=== PATIENT | female | born 2005 | race Caucasian/White ===

== ENCOUNTER 2025-01-17 13:00 | Outpatient (RCR) | payer OTHER, SELFPAY ==
--- NOTE | 2024-10-30 14:21 | OPREHPOC ---
Outpatient Therapy Plan of Care This is a Multidisciplinary Plan of Care that may contain components documented by all disciplines (PT, OT, and ST.) PT Problem 1 PT Problem #1 Knowledge Deficit PT Goal 1 Goal / Goal Update 1*independent with HEP 2* pt demonstrate correct body mechanics with lifting from floor Target Visit 6 PT Problem 2 PT Problem #2 Pain PT Goal 1 Goal / Goal Update *pt report pain rating at worst of 3/10 Target Visit 6 PT Problem 3 PT Problem #3 Impaired Strength PT Goal 1 Goal / Goal Update 1* increase strength of trunk and hips to 4+/5, to improve stability to spine and posture single leg standing with good stability x 30 seconds 2* R 3* L Target Visit 6
--- NOTE | 2024-10-30 14:21 | PTOPEVAL1 ---
Assessment and note entered by Graciela Robles, PT Evaluation Information Assessment Status Evaluation ICD-10 Condition Codes (PT) Pain in Thoracic Spine M54.6,Pain in low back M54. 50 Onset about 8 months ago Subjective Information chronic back pain since high school; have never had treatment for back pain; x ray- per pt mild scoliosis activity: assisting with care for her mother, who has cancer; she does not have to physically assist her mom; Goal: be able to lie down and not have sharp pain in my back Reported Pain Level Pain Score Self Report Additional Pain Score Comments pain range in the past week: 0-6/10 back increase pain: up and moving around few hours, then lie down in bed- get sharp pain decrease pain: shift onto her side sit, stand, sleeping and walking are OK does not take any pain meds Assessment PT Clinical Summary Nevaeh has the diagnosis of thoracic and lumbar pain. She reports issues with chronic back pain, recently more. And she has not had treatment in the past for back pain. Self assessment rating of 24% limitation in activity level. She is independent with her self care and home tasks. With the evaluation: she has scoliosis of thoracic-lumbar spine, with poor trunk positioning in standing; weakness of trunk and hips, with good flexibility of hips and decreased lumbar mobility; Skilled PT services are indicated for modalities PRN for pain control, therapeutic exercises to increase strength and education for HEP and body mechanics/posture education. Plan of Care Interventions Electrical Stimulation,Hot Pack/Cold Pack,Manual Therapy,Neuro Re-education,Patient/Caregiver Education,Therapeutic Activities,Therapeutic Exercise,Ultrasound,Other Other Interventions taping PT Services Indicated Yes Treatment Frequency and 1-2x/wk for 6 visits Duration These treatments will address the objective and functional deficits as defined above. The patient will be advanced safely and appropriately in order for the patient to progress towards his/her prior level of function. Additional exercises will be introduced and as well as a comprehensive home exercise program upon discharge, if needed, ?to ensure carryover of functional gains achieved in the clinic. This treatment plan has been reviewed and agreement upon by the patient.
--- NOTE | 2024-12-12 13:56 | OPREHPOC ---
Outpatient Therapy Plan of Care This is a Multidisciplinary Plan of Care that may contain components documented by all disciplines (PT, OT, and ST.) PT Problem 1 PT Problem #1 Knowledge Deficit PT Goal 1 Goal / Goal Update 1*independent with HEP 12/12/24 - MET 2* pt demonstrate correct body mechanics with lifting from floor 12/12/24 - progressing Target Visit 6 Progress Partially Met PT Problem 2 PT Problem #2 Pain PT Goal 1 Goal / Goal Update *pt report pain rating at worst of 3/10 12/12/24 - progressing Target Visit 6 Progress Partially Met PT Problem 3 PT Problem #3 Impaired Strength PT Goal 1 Goal / Goal Update 1* increase strength of trunk and hips to 4+/5, to improve stability to spine and posture 12/12/24 - progressing single leg standing with good stability x 30 seconds 2* R 12/12/24 - MET 3* L 12/12/24 - MET Target Visit 6 Progress Partially Met
--- NOTE | 2024-12-12 13:56 | PTOPPROG ---
Assessment and note entered by Ada Bolton, PT Evaluation Information Assessment Status Progress ICD-10 Condition Codes (PT) Pain in Thoracic Spine M54.6,Pain in low back M54. 50 Onset about 8 months ago Subjective Information Pt reports feeling pretty good overall since first starting therapy. The pt reports overall feelings of improvement by 70%. She thinks the sharp pain when laying down has gotten better, does not notice it as often. She does still notice tension in her back especially with cleaning the house. Assessment PT Clinical Summary Self assessment rating of 16% limitation in activity level with reports of 70% improvement in most subjective complaints. Pt continues to have poor trunk positioning in standing; weakness of trunk and hips, and decreased lumbar mobility; although she is improving in all these areas. Pt deficits will continue to be addressed and she would benefit from continued skilled PT. Plan of Care Interventions Electrical Stimulation,Hot Pack/Cold Pack,Manual Therapy,Neuro Re-education,Patient/Caregiver Education,Therapeutic Activities,Therapeutic Exercise,Ultrasound,Other Other Interventions taping PT Services Indicated Yes Treatment Frequency and 1-2x/wk for 6 visits Duration These treatments will address the objective and functional deficits as defined above. The patient will be advanced safely and appropriately in order for the patient to progress towards his/her prior level of function. Additional exercises will be introduced and as well as a comprehensive home exercise program upon discharge, if needed, ?to ensure carryover of functional gains achieved in the clinic. This treatment plan has been reviewed and agreement upon by the patient.
--- NOTE | 2025-01-07 15:54 | PCPTNOTE ---
Cancelled d/t transportation issues per front office. AKS
--- NOTE | 2025-01-11 13:57 | PCPTNOTE ---
Patient called & cancelled scheduled appointment this date due to transportation and mother being sick.
--- NOTE | 2025-01-17 13:56 | OPREHPOC ---
Outpatient Therapy Plan of Care This is a Multidisciplinary Plan of Care that may contain components documented by all disciplines (PT, OT, and ST.) PT Problem 1 PT Problem #1 Knowledge Deficit PT Goal 1 Goal / Goal Update 1*independent with HEP 12/12/24 - MET 2* pt demonstrate correct body mechanics with lifting from floor 12/12/24 - progressing 01-17-25 d/c goals met Target Visit 10 Progress Met PT Problem 2 PT Problem #2 Pain PT Goal 1 Goal / Goal Update *pt report pain rating at worst of 3/12/12/24 - progressing 01-17-25 d/c goal not met, 5/10 at worst Target Visit 12 Progress Not Met PT Problem 3 PT Problem #3 Impaired Strength PT Goal 1 Goal / Goal Update 1* increase strength of trunk and hips to 4+/5, to improve stability to spine and posture 12/12/24 - progressing single leg standing with good stability x 30 seconds 2* R 12/12/24 - MET 3* L 12/12/24 - MET 01-17-25 d/c goals met Target Visit 10 Progress Met
--- NOTE | 2025-01-17 13:56 | PTOPDC ---
Assessment and note entered by Graciela Robles, PT Assessment Status Discharge ICD-10 Condition Codes (PT) Pain in Thoracic Spine M54.6,Pain in low back M54. 50 Onset about 8 months ago Subjective Information have been doing the exercises at home; still have really bad pain; have been helping my mom more and caring for her more; have been trying to watch my posture with things and stretch more and that helps; fell down a few stairs when dog got under my feet, fell backwards and landed on my butt, slid down the stairs; Reported Pain Level Pain Score Self Report Additional Pain Score Comments pain range in the past week: 0-5/10; thoracic and upper lumbar; increase pain: home tasks and caring & assisting her mom decrease pain: change positions, stretching, exercises, heat not taking any meds; is sleeping OK, move around alot with sleeping. reinforced use of heat, stretching to manage pain Assessment PT Clinical Summary Nevaeh has received 10 PT sessions. Today, presents with 4+/5 strength of R and L LE's ; single leg standing on R and L is 30+ seconds with good stability; maximum lifting with bilateral UE box lift to 30#, with good technique and stopped due to fingers hurting from plastic digging into her fingers; standing trunk ROM and supine LE motions did not cause any pain, except supine R hamstring stretch caused pain in R lateral hip; education completed for HEP, body mechanics and self management of pain. The goals were partially met. Discharge PT services. She is to continue with the HEP and monitoring her posture and body mechanics. Plan of Care PT Services Indicated No
== END 2025-01-17 14:15 | disposition home or self-care (01) ==
LOC: ANHPT 13:00
PROVIDERS: PCP Family Medicine; Visit Provider Family Medicine
DX: M54.50 Low back pain, unspecified (principal); M54.6 Pain in thoracic spine; G89.29 Other chronic pain
CPT/HCPCS: 97110; 97140; 97161; 97530